=== PATIENT | male | born 1960 | race Caucasian/White ===

== ENCOUNTER 2017-05-24 23:55 | Inpatient (IN) | payer OTHER ==
[~2017-05-24] VITALS: Ht 177.8 cm; Wt 60.0 kg
[2017-05-25] VITALS (11 sets, daily range): BP systolic 119–138; BP diastolic 79–82; PULSE 84–113; RESP 16–18; TEMP 98.9; Ht 177.8 cm; Wt 60.0 kg
--- NOTE | 2017-05-25 00:08 | ERA ---
ER Documentation Chief Complaint Date/Time DATE: 05/25/17 TIME: 00:07 Chief Complaint Altered level of consciousness HPI The patient is a 57-year-old male, presenting to the ER because of altered level consciousness for the last 2 days, gradually getting worse today. He had a venous ultrasound of bilateral lower extremity that showed positive for bilateral DVT. He was asked to go to the hospital. He has been out of the house today and did not have any food. When he came home, the noticed that he has been very confused today, therefore she called 911. When the EMS arrived to the house, O2 saturation was 82% on room air however he responded to supplemental oxygen. He has been sick for a year, undergoing chemotherapy for metastatic esophageal cancer and CT of hope. The also complains of a bleeding lesion on the right upper quadrant today. He is waiting for hospice evaluation. The does not want aggressive treatment, DO NOT RESUSCITATE, DO NOT INTUBATE Past medical history: Metastatic esophageal cancer, history of right pleural effusion, status post right thoracentesis Past surgical history: Port-A-Cath ROS All systems reviewed and are negative except as per history of present illness. Medications Home Meds Reported Medications Amlodipine Besylate* (Amlodipine Besylate*) 10 Mg Tablet, 10 MG PO DAILY, #30 TAB 05/25/17 Allergies Allergies: Coded Allergies: No Known Allergy (Unverified , 05/25/17) Physical Exam Vitals Vital Signs Date Time Temp Pulse Resp B/P Pulse Ox O2 Delivery O2 Flow Rate FiO2 05/25/17 03:46 98.9 87 20 121/87 100 Room Air 05/25/17 00:47 Nasal Cannula 5 05/25/17 00:14 100.2 97 20 156/107 100 Physical Exam Const: No acute distress.Agitated Head: Atraumatic.Multiple lesions on the forehead, nonbleeding Eyes: Normal Conjunctiva. ENT: Normal External Ears, Nose and Mouth. Neck: Full range of motion. No meningismus. Resp: Clear to auscultation bilaterally. Cardio: Regular rate and rhythm. Abd: Soft, non distended, normal bowel sounds, non tender.Right upper quadrant skin lesion that is not actively bleeding Skin: No petechiae or rashes. Back: No midline or flank tenderness. Ext: No cyanosis, or edema. Neur: Unable to perform due to his condition Psych: Unable to perform due to his condition Result Diagram: 05/25/17 0023 05/25/17 0023 Results 24 hrs Laboratory Tests Test 05/25/17 00:23 05/25/17 00:35 05/25/17 00:53 05/25/17 00:54 White Blood Count 9.510^3/ul Red Blood Count 3.4910^6/ul Hemoglobin 10.4g/dl Hematocrit 31.5% Mean Corpuscular Volume 90.3fl Mean Corpuscular Hemoglobin 29.8pg Mean Corpuscular Hemoglobin Concent 33.0g/dl Red Cell Distribution Width 18.6% Platelet Count 62802^3/UL Mean Platelet Volume 9.6fl Neutrophils % 91.6% Lymphocytes % 2.1% Monocytes % 5.7% Eosinophils % 0.0% Basophils % 0.1% Nucleated Red Blood Cells % 0.0/100WBC Neutrophils # 8.710^3/ul Lymphocytes # 0.210^3/ul Monocytes # 0.510^3/ul Eosinophils # 0.010^3/ul Basophils # 0.010^3/ul Nucleated Red Blood Cells # 0.010^3/ul Prothrombin Time 13.5Sec Prothrombin Time Ratio 1.1 INR International Normalized Ratio 1.03 Activated Partial Thromboplast Time 35.3Sec Sodium Level 137mmol/L Potassium Level 4.3mmol/L Chloride Level 97mmol/L Carbon Dioxide Level 30mmol/L Anion Gap 14 Blood Urea Nitrogen 15mg/dl Creatinine 1.15mg/dl Glucose Level 91mg/dl Calcium Level 14.4mg/dl Total Bilirubin 0.9mg/dl Direct Bilirubin 0.00mg/dl Indirect Bilirubin 0.9mg/dl Aspartate Amino Transf (AST/SGOT) 40IU/L Alanine Aminotransferase (ALT/SGPT) 26IU/L Alkaline Phosphatase 162IU/L Troponin I 0.053ng/ml Total Protein 7.2g/dl Albumin 3.7g/dl Globulin 3.50g/dl Albumin/Globulin Ratio 1.05 Urine Color YELLOW Urine Clarity CLOUDY Urine pH 8.0 Urine Specific [place] 1.010 Urine Ketones TRACEmg/dL Urine Nitrite NEGATIVEmg/dL Urine Bilirubin NEGATIVEmg/dL Urine Urobilinogen NEGATIVEmg/dL Urine Leukocyte Esterase NEGATIVELeu/ul Urine Microscopic RBC 3/HPF Urine Microscopic WBC 5/HPF Urine Amorphous Crystals MANY/HPF Urine Hemoglobin NEGATIVEmg/dL Urine Glucose NEGATIVEmg/dL Urine Total Protein NEGATIVEmg/dl Bedside Urine pH (LAB) 8.5 Bedside Urine Protein (LAB) Negative Bedside Urine Glucose (UA) Negative Bedside Urine Ketones (LAB) Trace Bedside Urine Blood Negative Bedside Urine Nitrite (LAB) Negative Bedside Urine Leukocyte Esterase (L Negative Lactic Acid Level 5.1mmol/L Test 05/25/17 02:33 Lactic Acid Level 1.8mmol/L Current Medications Medications (Trade) Dose Ordered Sig/Darlyn Route PRN Reason Start Time Stop Time Status Last Admin Dose Admin Lorazepam 1 mg 1 mg ONCE ONCE IV 05/25/17 01:30 05/25/17 01:31 DC 05/25/17 01:31 Sodium Chloride 1,860 ml @ 1,860 mls/hr BOLUS X1 ONCE IV 05/25/17 02:30 05/25/17 03:29 DC 05/25/17 02:50 Vancomycin HCl 250 ml @ 125 mls/hr ONCE IVPB 05/25/17 02:30 05/25/17 04:29 Piperacillin Sod/ Tazobactam Sod 100 ml @ 200 mls/hr ONCE ONCE IVPB 05/25/17 02:30 05/25/17 02:59 DC 05/25/17 02:50 Zoledronic Acid/ Sodium Chloride (Zometa/NS) 105 ml @ 210 mls/hr ONCE ONCE IVPB 05/25/17 02:30 05/25/17 02:59 DC 05/25/17 02:51 Enoxaparin Sodium (Lovenox) 60 mg ONCE ONCE SC 05/25/17 03:30 05/25/17 03:31 DC Calcitonin [place] (Miacalcin Inj) 240 units Q12 SC 05/25/17 04:00 05/27/17 03:59 UNV Procedures/[place] [address] Radiology Main Line: [phone] DIAGNOSTIC IMAGING REPORT Patient: MARY ANN BRANNON : 1960 Age: 57 Sex: M MR #: [id number] DOS: 05/25/17 0205 Ordering MD: DEBBIE ABERNATHY MD Location: E/R Room/Bed: PROCEDURE: CT BRAIN WITHOUT CONTRAST CLINICAL INDICATION: 57-year-old male with altered level of consciousness. The patient has a history of lung cancer. TECHNIQUE: The study was performed utilizing [employer] VCT 64-slice CT scanner. Direct axial sections were obtained from the foramen magnum to the vertex without the use of intravenous contrast material. The patient moved during the initial scan and therefore was rescanned. Sagittal and coronal reformations were obtained. One or more of the following dose reduction techniques were utilized: automated exposure control, adjustment of the mA and/ or kV according to patient's size or use of iterative reconstruction technique. The images were viewed on a PACS workstation. CTD/vol = 132.6 mGy; Total Exam DLP = 1170.4 mGy-cm. COMPARISON: None. FINDINGS: There is motion artifact identified limiting the evaluation to some extent. There is moderate prominence of the sulci and cisternal spaces consistent with diffuse volume loss. Otherwise, the ventricles have a normal shape and position. There is no evidence for mass effect or midline shift. There are no intracranial areas of abnormal attenuation. There is no evidence for acute intra or extra-axial blood. The bony calvarium is intact. There is an ovoid right frontal scalp soft tissue density measuring approximately 10 x 11 x 13 mm with fluid density. The partially visualized paranasal sinuses and mastoid air cells are without significant abnormal soft tissue. IMPRESSION: 1. Motion artifact limiting the evaluation. 2. Moderate diffuse volume loss. 3. Small ovoid midline frontal scalp soft tissue mass with fluid density. This may represent a sebaceous cyst. .Anjum Montgomery MD, MD Date Time Electronically viewed and signed by .Anjum Montgomery MD, on 05/25/2017 03:10 .M/ CC: DEBBIE ABERNATHY MD [place] [address] Radiology Main Line: [phone] DIAGNOSTIC IMAGING REPORT Patient: MARY ANN BRANNON : 1960 Age: 57 Sex: M [id number] DOS: 05/25/17 0008 Ordering MD: DEBBIE ABERNATHY MD Location: E/R Room/Bed: PROCEDURE: CHEST - 1 VIEW CLINICAL INDICATION: 57-year-old male with sepsis. TECHNIQUE: A single frontal AP portable view of the chest was performed. The images were reviewed on a PACS workstation. COMPARISON: None. FINDINGS: There is a right-sided chest port present with the tip at the cavoatrial junction region. The cardiomediastinal silhouette is within normal limits. There is cubw-sp-qenomzda right pleural effusion. There are diffuse nodular densities identified throughout the lungs bilaterally. There is right mid/lower lung zone atelectasis versus infiltrate. There is no evidence for congestive heart failure. There is no evidence for pneumothorax. The osseous structures are intact. IMPRESSION: 1. Right-sided chest port. 2. Diffuse bilateral ovoid nodular densities scattered throughout the lungs. Prior studies are not available comparison. 3. Ocot-gw-acogouaz right pleural effusion. 4. Right mid/lower lung zone atelectasis versus infiltrate. .Anjum Montgomery MD, MD Date Time Electronically viewed and signed by .Anjum Montgomery MD, MD on 05/25/2017 02:23 .M/ CC: DEBBIE ABERNATHY MD EKG: Read by emergency physician Rate/Rhythm: Sinus tachycardia 105 beats/min QRS, ST, T-waves: No ST elevation, no T inversion, Low voltage Impression: Abnormal EKG MEDICAL MAKING DECISION: The patient is a 57-year-old male, presenting with acute encephalopathy most likely due to metabolic encephalopathy and septic encephalopathy, acute septic shock, acute hypercalcemia, acute bilateral DVT, acute pneumonia, acute right pleural effusion. He was treated with 1 mg Ativan IV for acute agitation, normosaline 30 mL/kg IV, vancomycin IV, Zosyn IV for acute septic shock, Zoledronic acid 4 mg IV for acute hypercalcemia. The differential diagnoses considered include but are not limited to medication non-compliance, alcohol intoxication or withdrawal, drug intoxication or withdrawal, endocrine disorder, trauma, CVA, tumor, metabolic encephalopathy, septic encephalopathy. Admit MDM: Patient's infectious symptoms have not stabilized and the patient is at risk of rapid decompensation. The patient will be admitted for careful hydration, antibiotic therapy, and infectious source control. Severe Sepsis criteria: Infectious source: PNA End organ damage indicated by: Lactate > 2.0 mmol/L Sepsis Management: Time of recognition of severe sepsis/septic shock: 1 am Within 3 hours of recognition: Blood cultures x 2 before broad-spectrum antibiotics: Yes 30 ml/kg NS bolus completed Initial lactate 5.1 Repeat lactate pending Critical Care: Critical care time 35 minutes excluding billable procedure Emergent fluid management while maintaining close respiratory support. Provision of immediate and broad-spectrum antibiotic therapy. Simultaneous assessment for possible sources in order to direct targeted therapy. Consideration for invasive and chemical support to prevent cardiopulmonary collapse. Septic Shock Assessment: Any lactic acid > 4.0 yes Persistent hypotension (SBP < 90 or 40 mmHg drop, MAP < 65) despite 30 mL/kg IV fluid bolusno Volume Re-assessment for Septic Shock (post 30 ml/kg bolus): Temp98.9, BP121/87, HR87, RR20, Pox100% Heart regular rate & rhythm Lungs no crackles Skin Warm & dry & pink Cap Refill less than 2 seconds Peripheral pulses radially present Persistent Hypotension Treatment: Comfort care yes Central line na Vasopressor started na I considered further perfusion assessment with CVP measurement, SCVO2, bedside ultrasound volume assessment, passive leg raise, trial of further fluid bolus. And proceeded withivf Departure Diagnosis: Primary Impression: Encephalopathy Additional Impressions: Septic shock DVT (deep venous thrombosis) Hypercalcemia Pneumonia Pleural effusion, right Anemia Condition: Serious Comments I discussed the findings with the patient. I discussed the patient with the on- call hospitalist Dr. Narvaez at 3:25 AM who was made aware of the lab, the treatment, the patient condition. The patient is admitted to telemetry The patient's blood pressure was elevated (>120/80) but appears stable without evidence of hypertension emergency or urgency. The patient was counseled about the risks of hypertension and urged to pursue outpatient monitoring and therapy within a week with their primary care physician. DEBBIE ABERNATHY MD May 25, 2017 00:08
[2017-05-25 00:45] LABS: URINE BLOOD (Dip) POC Negative (NEGATIVE)
[2017-05-25 01:05] LABS: ABNORMAL IP MESSAGE 1; BASOPHILS % 0.1 % (0.0-2.0); HEMATOCRIT 31.5 % (42.0-52.0); HEMOGLOBIN 10.4 g/dl (14.0-18.0); LYMPHOCYTES # 0.2 10^3/ul (0.8-2.9); LYMPHOCYTES % 2.1 % (15.0-51.0); MEAN CORPUSCULAR HEMOGLOBIN 29.8 pg (29.0-33.0); MEAN CORPUSCULAR VOLUME 90.3 fl (82.0-101.0); MEAN PLATELET VOLUME 9.6 fl (7.4-10.4); MONOCYTE # 0.5 10^3/ul (0.3-0.9); MONOCYTES % 5.7 % (0.0-11.0); NEUTROPHIL # 8.7 10^3/ul (1.6-7.5); NEUTROPHILS % 91.6 % (39.0-77.0); PLATELET COUNT 428 10^3/UL (140-415); POSITIVE DIFF @See below; RED BLOOD COUNT 3.49 10^6/ul (4.70-6.10); RED CELL DISTRIBUTION WIDTH 18.6 % (11.5-14.5); WHITE BLOOD COUNT 9.5 10^3/ul (4.8-10.8)
[2017-05-25 01:19] LABS: INR 1.03; PROTIME 13.5 Sec (12.2-14.2); PT RATIO 1.1
[2017-05-25 01:20] LABS: PARTIAL THROMBOPLASTIN TIME 35.3 Sec (25.0-35.0)
[2017-05-25] MEDS ORDERED: LORAZEPAM 2 MG INJ IV ONE (01:30)
[2017-05-25 01:32] LABS: ALBUMIN 3.7 g/dl (3.3-4.9); ALBUMIN/GLOBULIN RATIO 1.05; BILIRUBIN,INDIRECT 0.9 mg/dl (0-1.1); BILIRUBIN,TOTAL 0.9 mg/dl (0.2-1.3); CREATININE 1.15 mg/dl (0.61-1.24); POTASSIUM 4.3 mmol/L (3.5-5.1); TOTAL PROTEIN 7.2 g/dl (6.1-8.1)
[2017-05-25 01:41] LABS: ADD UMIC YES; UR AMORPHOUS CRYSTAL MANY /HPF (NONE SEEN); UR ASCORBIC ACID NEGATIVE (NEGATIVE); UR BILIRUBIN (Dip) NEGATIVE (NEGATIVE); UR BLOOD (Dip) NEGATIVE (NEGATIVE); UR CLARITY CLOUDY (CLEAR); UR COLOR YELLOW (YELLOW); UR GLUCOSE (Dip) NEGATIVE (NEGATIVE); UR KETONES (Dip) TRACE mg/dL (NEGATIVE); UR LEUKOCYTE ESTERASE (Dip) NEGATIVE Leu/ul (NEGATIVE); UR NITRITE (Dip) NEGATIVE (NEGATIVE); UR RBC 3 /HPF (0-5); UR TOTAL PROTEIN (Dip) NEGATIVE (NEGATIVE); UR UROBILINOGEN (Dip) NEGATIVE (NEGATIVE)
[2017-05-25 01:45] LABS: TROPONIN-I 0.053 ng/ml (0.00-0.12)
[2017-05-25 02:03] LABS: CALCIUM 14.4 mg/dl (8.4-10.2)
--- NOTE | 2017-05-25 02:24 | RADRPT ---
PROCEDURE: CHEST - 1 VIEW CLINICAL INDICATION: 57-year-old male with sepsis. TECHNIQUE: A single frontal AP portable view of the chest was performed. The images were reviewed on a PACS workstation. COMPARISON: None. FINDINGS: There is a right-sided chest port present with the tip at the cavoatrial junction region. The cardio mediastinal silhouette is within normal limits. There is bnwl-sn-pjeccclb right pleural effusion. Th ere are diffuse nodular densities identified throughout the lungs bilaterally. There is right mid/lo wer lung zone atelectasis versus infiltrate. There is no evidence for congestive heart failure. The re is no evidence for pneumothorax. The osseous structures are intact. IMPRESSION: 1. Right-sided chest port. 2. Diffuse bilateral ovoid nodular densities scattered throughout the lungs. Prior studies are not available comparison. 3. Qizf-vu-pbgapegb right pleural effusion. 4. Right mid/lower lung zone atelectasis versus infiltrate. .Anjum Montgomery MD, MD Date Time Electronically viewed and signed by .Anjum Montgomery MD, on 05/25/2017 02:23 .M/
[2017-05-25] MEDS ORDERED: AMLO-147 PO (02:26)
[2017-05-25] MEDS ORDERED: SOD CHLORIDE 0.9% 1,860 ML IV ONE (02:30)
[2017-05-25] MEDS ORDERED: ZOLEDRONIC ACID 4 MG in SOD CHLORIDE 0.9% 100 ML IVPB ONE (02:30)
[2017-05-25] MEDS ORDERED: VANCOMYCIN 1 GM (PMX) 250 ML IVPB SCH (02:30)
[2017-05-25] MEDS ORDERED: PIPER-TAZO 3.375 GM IV (PMX) 100 ML IVPB ONE (02:30)
--- NOTE | 2017-05-25 03:10 | RADRPT ---
PROCEDURE: CT BRAIN WITHOUT CONTRAST CLINICAL INDICATION: 57-year-old male with altered level of consciousness. The patient has a histo ry of lung cancer. TECHNIQUE: The study was performed utilizing [employer] VCT 64-slice CT scanner. Direct axial sections were obtained from the foramen magnum to the vertex without the use of intravenous contrast material. The patient moved during the initial scan and therefore was rescanned. Sagittal and partha nal reformations were obtained. One or more of the following dose reduction techniques were utilized : automated exposure control, adjustment of the mA and/or kV according to patient's size or use of i terative reconstruction technique. The images were viewed on a PACS workstation. CTD/vol = 132.6 m Gy; Total Exam DLP = 1170.4 mGy-cm. COMPARISON: None. FINDINGS: There is motion artifact identified limiting the evaluation to some extent. There is moderate promin ence of the sulci and cisternal spaces consistent with diffuse volume loss. Otherwise, the ventricl es have a normal shape and position. There is no evidence for mass effect or midline shift. There a re no intracranial areas of abnormal attenuation. There is no evidence for acute intra or extra-axi al blood. The bony calvarium is intact. There is an ovoid right frontal scalp soft tissue density me asuring approximately 10 x 11 x 13 mm with fluid density. The partially visualized paranasal sinuses and mastoid air cells are without significant abnormal soft tissue. IMPRESSION: 1. Motion artifact limiting the evaluation. 2. Moderate diffuse volume loss. 3. Small ovoid midline frontal scalp soft tissue mass with fluid density. This may represent a seba ceous cyst. .Anjum Montgomery MD, Date Time Electronically viewed and signed by .Anjum Montgomery MD, on 05/25/2017 03:10 .M/
[2017-05-25] MEDS ORDERED: ENOXAPARIN 40 MG/0.4 ML SYG SC ONE (03:30)
[2017-05-25] MEDS: SOD CHLORIDE 0.9% 1,000 ML IV SCH ×4 (03:47→22:16)
[2017-05-25] MEDS ORDERED: ACETAMINOPHEN 325 MG TAB PO PRN (04:00)
[2017-05-25] MEDS ORDERED: NACL 0.9% 3 ML SYG IV SCH (04:00)
[2017-05-25] MEDS ORDERED: ONDANSETRON 4 MG INJ IV PRN (04:00)
[2017-05-25] MEDS: CALCITONIN SALMON 400 UNITS INJ SC SCH ×3 (04:00→22:18)
--- NOTE | 2017-05-25 04:21 | RADRPT ---
PROCEDURE: US bilateral lower extremity venous Doppler CLINICAL INDICATION: Bilateral swelling TECHNIQUE: Multiple sonographic images of the bilateral lower extremity deep venous system was obt ained utilizing grayscale, color-flow, compressive sonography and Doppler imaging with augmentation. COMPARISON: There are no similar studies submitted for comparison. FINDINGS: There is normal compressibility and flow within the left common femoral, superficial femoral, poplit eal, and calf veins. There is normal compressibility and flow within the right common femoral, superficial femoral, popli teal, and calf veins. IMPRESSION: No evidence of DVT within the lower extremities. RPTAT: HIKT .Jesus Bernal MD, MD Date Time Electronically viewed and signed by .Jesus Bernal MD, MD on 05/25/2017 04:20 .T/
[2017-05-25] MEDS ORDERED: PANTOPRAZOLE 40 MG INJ IV SCH (06:00)
[2017-05-25] MEDS ORDERED: PIPER-TAZO 3.375 GM IV (PMX) 100 ML IVPB SCH (07:00)
[2017-05-25] MEDS ORDERED: HALOPERIDOL 5 MG INJ IM ONE (07:00)
[2017-05-25] MEDS ORDERED: VANCOMYCIN IV PER PHARMACY XX SCH (07:00)
--- NOTE | 2017-05-25 07:04 | HP ---
Date/Time of Note Date/Time of Note DATE: 05/25/17 TIME: 06:35 Assessment/Plan VTE Prophylaxis VTE Prophylaxis Intervention: LMWH Assessment/Plan Chief Complaint/Hosp Course This is a 57-year-old male being admitted to the telemetry floor for: #1 septic shock: Patient initially presented with a lactic acid level of 5.1. He also had a temperature of 100.2. Chest x-ray: Shows signs of possible infiltrates. He also has been coughing lately. We will treat the patient right now for suspected pneumonia with vancomycin and Zosyn. He was apparently D satting when ambulance arrived 82% however now at the current time he is 100% on room air. There also appears to be gurgling at the upper airways when he coughs, will need to put the patient on aspiration precautions. Oral suctioning of the secretions. serial lactate levels. #2 right-sided pleural effusion: Patient had a previous thoracentesis. Chest x- ray findings suggest a mild to moderate right-sided pleural effusion based on the read. Will consult IR for right-sided thoracentesis to see if we can get any amount of fluid out for his comfort, though based on x-ray I do feel like he may not be able to get much. #3 hypercalcemia: Secondary likely to underlying metastatic cancer. Will provide him with IV fluid hydration. He was given alendronate in the ED. Will also put him on calcitonin 4 U/kg injections twice daily for 48 hours. Will order PTH level. Monitor calcium levels #4 altered mental status: Likely multifactorial secondary to underlying septic shock, pneumonia, hypercalcemia. Will await the above and monitor his status. Will order speech and swallow eval. Will keep patient n.p.o. for now., IV fluid hydration #5 anemia of chronic disease: Likely secondary to underlying cancer. Continue to monitor. #6 acute kidney injury: Likely prerenal etiology at the current time with IV hydration #7 metastatic esophageal squamous cell carcinoma: Patient is being followed by [facility]. Will consult palliative care at the 's request. history of smoking and etoh use. #8 questionable DVT: Patient apparently had a outpatient lower extremity Doppler that was positive for DVTs however repeat lower extremity bilateral Dopplers in the hospital today did not show any signs of DVT. at the current time will put on scds until he has a thoracentesis, and then can put him on heparin. #9 HTN: hold amlodipine for now secondary to #1 #10 DVT GI prophylaxis: scds for now, Protonix Further treatment strategy will be implemented as per the clinical course Problems: HPI/ROS Admit Date/Time Admit Date/Time May 25, 2017 at 03:27 Hx of Present Illness Chief complaint: Altered level of consciousness The patient is a 57-year-old male, presenting to the ER because of altered level consciousness for the last 2 days, gradually getting worse today. He had a venous ultrasound of bilateral lower extremity that showed positive for bilateral DVT. He was asked to go to the hospital. He has been out of the house today and did not have any food. When he came home, the noticed that he has been very confused today, therefore she called 911. When the EMS arrived to the house, O2 saturation was 82% on room air however he responded to supplemental oxygen. He has been sick for a year, undergoing chemotherapy for metastatic esophageal cancer and [facility] ([facility] The does not want aggressive treatment, DO NOT RESUSCITATE, DO NOT INTUBATE. is planning for hospice evaluation on Saturday or Saturday. She is opening to see a palliative care doctor here as well. Allergies: NKDA Medications: See Oct Const: As per HPI Eyes : No pain discharge or redness or change in visual acuity ENT: Oral secretions/gurgling Respiratory: No shortness of breath, cough, sputum, wheezing, or pleuritic pain Cardiovascular: No chest pain, palpitation, PND, or edema GI : no change in appetite, abdominal pain, nausea, vomiting, diarrhea, constipation, or change in the color his stool Genitourinary: No dysuria, hematuria, flank pain , discharge or CVA tenderness Musculoskeletal: No joint pain, back pain, neck pain, restricted range of motion in neck or joints Skin: Skin lesions of the scalp and right upper quadrant Neuro: As per HPI Endocrine: No polyuria, polydipsia, temperature intolerance Psych: As per HPI PMH/Family/Social Past Medical History Metastatic squamous cell esophageal cancer, history of right pleural effusion, status post right thoracentesis, hypertension Past Surgical History Right chest Port-A-Cath Family History Significant Family History: no pertinent family hx Social History Alcohol Use: sober (Former EtOH drinker) Smoking Status: Former smoker Drug Use: none Exam/Review of Systems Vital Signs Vitals Vital Signs Date Time Temp Pulse Resp B/P Pulse Ox O2 Delivery O2 Flow Rate FiO2 05/25/17 05:29 96 05/25/17 04:32 20 129/91 100 Room Air 05/25/17 03:46 98.9 05/25/17 00:47 5 Exam Exam General: Patient is somnolent, but arousable. He is able to answer questions appropriately though he is lethargic HEENT: Atraumatic, normocephalic. The pupils are equal, round and reactive. Extraocular motor are intact Neck: Supple with full range of motion. Upper airway gurgling sounds Chest: Nontender Lungs: Coarse breath sounds of the bilateral lung melendez greater on the right and the left, Heart: Normal S1-S2, Regular rhythm and rate. Abdomen: Soft , nontender, nondistended , bowel sounds are present. No guarding no rebound tenderness , No masses or organomegaly. No costovertebral temporal angle mass Extremities: Normal to inspection, no edema no cyanosis Neurologic: Somnolent but arousable. He is able to answer some questions appropriately, though he is a bit confused. Unable to assess further neurologic exam secondary to somnolence and lethargy. Additional Comments PROCEDURE: US bilateral lower extremity venous Doppler CLINICAL INDICATION: Bilateral swelling TECHNIQUE: Multiple sonographic images of the bilateral lower extremity deep venous system was obtained utilizing grayscale, color-flow, compressive sonography and Doppler imaging with augmentation. COMPARISON: There are no similar studies submitted for comparison. FINDINGS: There is normal compressibility and flow within the left common femoral, superficial femoral, popliteal, and calf veins. There is normal compressibility and flow within the right common femoral, superficial femoral, popliteal, and calf veins. IMPRESSION: No evidence of DVT within the lower extremities. RPTAT: HIKT .Jesus Bernal MD, Date Time Electronically viewed and signed by .Jesus Bernal MD, on 05/25/2017 04:20 .T/ CC: DEBBIE ABERNATHY MD PROCEDURE: CT BRAIN WITHOUT CONTRAST CLINICAL INDICATION: 57-year-old male with altered level of consciousness. The patient has a history of lung cancer. TECHNIQUE: The study was performed utilizing [employer] VCT 64-slice CT scanner. Direct axial sections were obtained from the foramen magnum to the vertex without the use of intravenous contrast material. The patient moved during the initial scan and therefore was rescanned. Sagittal and coronal reformations were obtained. One or more of the following dose reduction techniques were utilized: automated exposure control, adjustment of the mA and/ or kV according to patient's size or use of iterative reconstruction technique. The images were viewed on a PACS workstation. CTD/vol = 132.6 mGy; Total Exam DLP = 1170.4 mGy-cm. COMPARISON: None. FINDINGS: There is motion artifact identified limiting the evaluation to some extent. There is moderate prominence of the sulci and cisternal spaces consistent with diffuse volume loss. Otherwise, the ventricles have a normal shape and position. There is no evidence for mass effect or midline shift. There are no intracranial areas of abnormal attenuation. There is no evidence for acute intra or extra-axial blood. The bony calvarium is intact. There is an ovoid right frontal scalp soft tissue density measuring approximately 10 x 11 x 13 mm with fluid density. The partially visualized paranasal sinuses and mastoid air cells are without significant abnormal soft tissue. IMPRESSION: 1. Motion artifact limiting the evaluation. 2. Moderate diffuse volume loss. 3. Small ovoid midline frontal scalp soft tissue mass with fluid density. This may represent a sebaceous cyst. .Anjum Montgomery MD, Date Time Electronically viewed and signed by .Anjum Montgomery MD, MD on 05/25/2017 03:10 .M/ CC: DEBBIE ABERNATHY MD PROCEDURE: CHEST - 1 VIEW CLINICAL INDICATION: 57-year-old male with sepsis. TECHNIQUE: A single frontal AP portable view of the chest was performed. The images were reviewed on a PACS workstation. COMPARISON: None. FINDINGS: There is a right-sided chest port present with the tip at the cavoatrial junction region. The cardiomediastinal silhouette is within normal limits. There is [id number] right pleural effusion. There are diffuse nodular densities identified throughout the lungs bilaterally. There is right mid/lower lung zone atelectasis versus infiltrate. There is no evidence for congestive heart failure. There is no evidence for pneumothorax. The osseous structures are intact. IMPRESSION: 1. Right-sided chest port. 2. Diffuse bilateral ovoid nodular densities scattered throughout the lungs. Prior studies are not available comparison. 3. Khkw-im-oxvounvl right pleural effusion. 4. Right mid/lower lung zone atelectasis versus infiltrate. .Anjum Montgomery MD, MD Date Time Electronically viewed and signed by .Anjum Montgomery MD, MD on 05/25/2017 02:23 .M/ CC: DEBBIE ABERNATHY MD Labs Result Diagram: 05/25/17 0023 05/25/17 0023 Medications Medications Current Medications Calcitonin [place] 240 units 240 units Q12 SC Last administered on 05/25/17 04: 00; Admin Dose 240 UNITS; Start 05/25/17 at 04:00; Stop 05/27/17 at 03:59 Sodium Chloride (NS) 1,000 ml @ 100 mls/hr Q10H IV ; Start 05/25/17 at 03:47 Ondansetron HCl (Zofran Inj) 4 mg Q6H PRN IV NAUSEA AND/OR VOMITING; Start 05/25/17 at 04:00 Acetaminophen (Tylenol Tab) 650 mg Q6H PRN PO PAIN LEVEL 1-3 OR FEVER; Start 05/25/17 at 04:00 Pantoprazole (Protonix Iv) 40 mg DAILY@06 IV Last administered on 05/25/17 05: 56; Admin Dose 40 MG; Start 05/25/17 at 06:00 Haloperidol (Haldol) 2 mg ONCE ONCE IM ; Start 05/25/17 at 07:00; Stop at 07:01 RAZ NICHOLS May 25, 2017 06:45
[2017-05-25 07:39] LABS: ABNORMAL IP MESSAGE 1; BASOPHILS % 0.1 % (0.0-2.0); HEMATOCRIT 29.9 % (42.0-52.0); HEMOGLOBIN 9.8 g/dl (14.0-18.0); LYMPHOCYTES # 0.1 10^3/ul (0.8-2.9); LYMPHOCYTES % 1.4 % (15.0-51.0); MEAN CORPUSCULAR HEMOGLOBIN 29.3 pg (29.0-33.0); MEAN CORPUSCULAR HGB CONC 32.8 g/dl (32.0-37.0); MEAN CORPUSCULAR VOLUME 89.5 fl (82.0-101.0); MEAN PLATELET VOLUME 9.6 fl (7.4-10.4); MONOCYTE # 0.7 10^3/ul (0.3-0.9); MONOCYTES % 7.7 % (0.0-11.0); NEUTROPHIL # 8.6 10^3/ul (1.6-7.5); NEUTROPHILS % 90.2 % (39.0-77.0); PLATELET COUNT 393 10^3/UL (140-415); POSITIVE DIFF @See below; RED BLOOD COUNT 3.34 10^6/ul (4.70-6.10); RED CELL DISTRIBUTION WIDTH 18.9 % (11.5-14.5); WHITE BLOOD COUNT 9.6 10^3/ul (4.8-10.8)
[2017-05-25 07:58] LABS: ALBUMIN 3.3 g/dl (3.3-4.9); ALBUMIN/GLOBULIN RATIO 1.06; BILIRUBIN,INDIRECT 0.7 mg/dl (0-1.1); BILIRUBIN,TOTAL 0.7 mg/dl (0.2-1.3); CALCIUM 11.9 mg/dl (8.4-10.2); CREATININE 1.03 mg/dl (0.61-1.24); POTASSIUM 3.4 mmol/L (3.5-5.1); TOTAL PROTEIN 6.4 g/dl (6.1-8.1)
[2017-05-25] MEDS ORDERED: POTASSIUM CHLORIDE (SR) 20 MEQ TAB PO STA (08:17)
[2017-05-25] MEDS ORDERED: ENOXAPARIN 40 MG/0.4 ML SYG SC SCH (09:00)
[2017-05-25] MEDS: AMLODIPINE 10 MG TAB PO SCH (09:00)
[2017-05-25] MEDS ORDERED: LEVOFLOXACIN 750 MG TABLET PO ONE (10:00)
--- NOTE | 2017-05-25 10:17 | PN ---
Date/Time of Note Date/Time of Note DATE: 05/25/17 TIME: 10:10 Assessment/Plan VTE Prophylaxis VTE Prophylaxis Intervention: SCD's Assessment/Plan Assessment/Plan 57 yo M with stage 4 esophageal ca here for AMS, likely metabolic encephalopathy from hypercalcemia of malignancy also with R sided pleural effusion and possible CAP PLAN #hypercalcemia: cont IVFs-->incr rate to 250 sp calcitonin x 1, ZA x 1, Ca already improving consider HD if ca >18 #R sided pleural effusion, possible CAP -thora ordered -empiric levoflox #end stage cancer PRN pain and agitation meds wound care cs for subQ mets DVT prophx. Imaging here without evidence of DVT Subjective 24 Hr Interval Summary Free Text/Dictation Talked more with . Pt diagnosed with cancer 8.16. Was already stage 4 at time of diagnosis. Has been following at [facility], found to have disease progression despite therapy. Now with subQ mets. Pt's AMS started just 1-2 days ago. Last thora was 2 mos ago, cytology at that time negative Exam/Review of Systems Vital Signs Vitals Vital Signs Date Time Temp Pulse Resp B/P Pulse Ox O2 Delivery O2 Flow Rate FiO2 05/25/17 08:00 84 05/25/17 07:43 97.7 18 138/82 05/25/17 04:32 100 Room Air 05/25/17 00:47 5 Exam laying in bed, agitated, trying to get up at times no mrg superior lung melendez clear abd soft +bl pedal edema LE dopplers with no DVT Results Result Diagram: 05/25/17 0650 05/25/17 0650 Results 24 hrs Laboratory Tests Test 05/25/17 00:23 05/25/17 00:35 05/25/17 00:53 05/25/17 00:54 White Blood Count 9.5 Red Blood Count 3.49 L Hemoglobin 10.4 L Hematocrit 31.5 L Mean Corpuscular Volume 90.3 Mean Corpuscular Hemoglobin 29.8 Mean Corpuscular Hemoglobin Concent 33.0 Red Cell Distribution Width 18.6 H Platelet Count 428 H Mean Platelet Volume 9.6 Neutrophils % 91.6 H Lymphocytes % 2.1 L Monocytes % 5.7 Eosinophils % 0.0 Basophils % 0.1 Nucleated Red Blood Cells % 0.0 Neutrophils # 8.7 H Lymphocytes # 0.2 L Monocytes # 0.5 Eosinophils # 0.0 Basophils # 0.0 Nucleated Red Blood Cells # 0.0 Prothrombin Time 13.5 Prothrombin Time Ratio 1.1 INR International Normalized Ratio 1.03 Activated Partial Thromboplast Time 35.3 H Sodium Level 137 Potassium Level 4.3 Chloride Level 97 Carbon Dioxide Level 30 Anion Gap 14 Blood Urea Nitrogen 15 Creatinine 1.15 Glucose Level 91 Calcium Level 14.4 *H Total Bilirubin 0.9 Direct Bilirubin 0.00 Indirect Bilirubin 0.9 Aspartate Amino Transf (AST/SGOT) 40 Alanine Aminotransferase (ALT/SGPT) 26 Alkaline Phosphatase 162 H Troponin I 0.053 Total Protein 7.2 Albumin 3.7 Globulin 3.50 H Albumin/Globulin Ratio 1.05 Urine Color YELLOW Urine Clarity CLOUDY A Urine pH 8.0 Urine Specific [place] 1.010 Urine Ketones TRACE A Urine Nitrite NEGATIVE Urine Bilirubin NEGATIVE Urine Urobilinogen NEGATIVE Urine Leukocyte Esterase NEGATIVE Urine Microscopic RBC 3 Urine Microscopic WBC 5 Urine Amorphous Crystals MANY A Urine Hemoglobin NEGATIVE Urine Glucose NEGATIVE Urine Total Protein NEGATIVE Bedside Urine pH (LAB) 8.5 Bedside Urine Protein (LAB) Negative Bedside Urine Glucose (UA) Negative Bedside Urine Ketones (LAB) Trace H Bedside Urine Blood Negative Bedside Urine Nitrite (LAB) Negative Bedside Urine Leukocyte Esterase (L Negative Lactic Acid Level 5.1 *H Test 05/25/17 02:33 05/25/17 06:50 Lactic Acid Level 1.8 2.0 White Blood Count 9.6 Red Blood Count 3.34 L Hemoglobin 9.8 L Hematocrit 29.9 L Mean Corpuscular Volume 89.5 Mean Corpuscular Hemoglobin 29.3 Mean Corpuscular Hemoglobin Concent 32.8 Red Cell Distribution Width 18.9 H Platelet Count 393 Mean Platelet Volume 9.6 Neutrophils % 90.2 H Lymphocytes % 1.4 L Monocytes % 7.7 Eosinophils % 0.0 Basophils % 0.1 Nucleated Red Blood Cells % 0.0 Neutrophils # 8.6 H Lymphocytes # 0.1 L Monocytes # 0.7 Eosinophils # 0.0 Basophils # 0.0 Nucleated Red Blood Cells # 0.0 Sodium Level 138 Potassium Level 3.4 L Chloride Level 100 Carbon Dioxide Level 31 Anion Gap 10 Blood Urea Nitrogen 12 Creatinine 1.03 Glucose Level 97 Calcium Level 11.9 #H Magnesium Level 2.1 Total Bilirubin 0.7 Direct Bilirubin 0.00 Indirect Bilirubin 0.7 Aspartate Amino Transf (AST/SGOT) 41 Alanine Aminotransferase (ALT/SGPT) 30 Alkaline Phosphatase 139 H Total Protein 6.4 Albumin 3.3 Globulin 3.10 Albumin/Globulin Ratio 1.06 Thyroid Stimulating Hormone (TSH) 42.600 H Medications Medications Current Medications Calcitonin [place] 240 units 240 units Q12 SC Last administered on 05/25/17 04: 00; Admin Dose 240 UNITS; Start 05/25/17 at 04:00; Stop 05/27/17 at 03:59 Sodium Chloride (NS) 1,000 ml @ 100 mls/hr Q10H IV Last administered on 09:35; Admin Dose 100 MLS/HR; Start 05/25/17 at 03:47 Ondansetron HCl (Zofran Inj) 4 mg Q6H PRN IV NAUSEA AND/OR VOMITING; Start 05/25/17 at 04:00 Acetaminophen (Tylenol Tab) 650 mg Q6H PRN PO PAIN LEVEL 1-3 OR FEVER; Start 05/25/17 at 04:00 Amlodipine Besylate (Norvasc) 10 mg DAILY PO ; Start 05/25/17 at 09:00 Levofloxacin (Levaquin) 750 mg DAILY@06 PO ; Start 05/26/17 at 06:00; Status UNV Levofloxacin (Levaquin) 750 mg ONCE ONCE PO ; Start 05/25/17 at 10:00; Stop at 10:01; Status UNV ROBERTO WATKINS MD May 25, 2017 10:17
[2017-05-25] MEDS ORDERED: LORAZEPAM 2 MG INJ IV PRN (10:30)
[2017-05-25] MEDS ORDERED: LEVOFLOXACIN 500MG/D5W (PMX) 100 ML IVPB ONE (11:00)
[2017-05-25] MEDS ORDERED: POTASSIUM CHLORIDE 250 ML IVPB ONE (11:00)
[2017-05-25] MEDS ORDERED: VANCOMYCIN 750 MG in SOD CHLORIDE 0.9% 150 ML IVPB SCH (13:00)
[2017-05-25] MEDS ORDERED: PENDING SANTYL ORDER FOR WOUND CARE XX PRN (15:30)
[2017-05-25] MEDS ORDERED: LIDOCAINE 1% (MPF) 5 ML VIAL ONE (18:26)
--- NOTE | 2017-05-25 18:39 | RADRPT ---
PROCEDURE: US guided right thoracentesis. CLINICAL INDICATION: Shortness of breath. Right pleural effusion. TECHNIQUE: Prior to the procedure, informed consent was obtained. The risks, benefits, and alternatives were e xplained to the patient or the patient's family, including but not limited to bleeding, infection, p ain, visceral or vascular damage, shock, pneumothorax, chest tube placement, air embolism, and . The patient or the patient's family understood the risks and the alternatives and wished to proce ed with the study. Informed written consent was obtained. A procedural pause was performed. The patient's name, date of , and procedure to be performed were verified. Ultrasound of the right hemithorax was performed in the axial and sagittal planes. A right pleural e ffusion is noted. Utilizing ultrasound guidance, optimal location for entry to the pleural cavity wa s ascertained. The overlying skin was prepped and draped in the usual sterile fashion. Approximate ly 10 ml of 1% Xylocaine was injected locally for pain control. Using ultrasound guidance, a 5-Fren ch Yueh catheter was introduced into the right pleural space without difficulty. Fluid was aspirated . COMPARISON: None. FINDINGS: Initial ultrasound demonstrates fluid in the right pleural space. Approximately 2.0liters of serous fluid was aspirated and sent to the laboratory. IMPRESSION: 1. Satisfactory ultrasound-guided right thoracentesis. RPTAT: QQ .Russell Calderon MD, Date Time Electronically viewed and signed by .Russell Calderon MD, on 05/25/2017 18:39 .R/
--- NOTE | 2017-05-25 19:08 | RADRPT ---
PROCEDURE: XR Chest. CLINICAL INDICATION: Lung metastases from esophageal cancer. Post right thoracentesis. TECHNIQUE: Single frontal view. COMPARISON: 05/25/2017. 0042 hours. FINDINGS: There is a tunneled implanted port right internal jugular vein catheter with the tip in the right at rium superiorly. Multiple bilateral pulmonary nodules are present consistent with metastatic disease . The heart size is normal. There is no right pleural effusion following right thoracentesis. There may be a small left pleural effusion. There is a right pneumothorax measuring approximately 10%. There is no left pneumothorax. IMPRESSION: 1. Approximately a 10% right pneumothorax following right thoracentesis. Follow-up chest x-ray in 1 -2 hours is advised. 2. No other change from the prior study done earlier the same day. Call report: A call report of the findings was made to Dr. Nelson on 05/25/2017 at 1840 hours. RPTAT: QQ .Russell Calderon MD, MD Date Time Electronically viewed and signed by .Russell Calderon MD, on 05/25/2017 19:07 .R/
[2017-05-25 19:25] LABS: FLD MN% 93.6 %; FLD PMN% 6.4 %; FLD RBC 0 /uL; FLD WBC 110 /cmm
[2017-05-25 19:29] LABS: FLD CLARITY HAZY; FLD COLOR YELLOW; FLD TYPE THORACENTESIS
[2017-05-25 19:34] LABS: FLUID LD 1556 U/L; FLUID TOTAL PROTEIN 4.4 g/dl; FLUID TYPE THORACENTESIS FLUID
[2017-05-25 19:35] LABS: FLUID GLUCOSE 88 mg/dl; FLUID TYPE THORACENTESIS FLUID
[2017-05-26] VITALS (12 sets, daily range): BP systolic 110–133; BP diastolic 62–96; PULSE 94–103; RESP 16–20
--- NOTE | 2017-05-26 00:58 | RADRPT ---
PROCEDURE: Portable chest x-ray. CLINICAL INDICATION: 57 years of age, male. Right pneumothorax post thoracentesis. Follow-up.. TECHNIQUE: Portable AP view of the chest. COMPARISON: Chest x-ray from earlier the same day at 06:27 p.m. FINDINGS: Right internal jugular indwelling catheter with the tip in the right atrium is in unchanged position . Cardiomediastinal contours are stable. Multiple bilateral pulmonary metastases are unchanged. Right pneumothorax has decreased in size since prior exam. There is an 1.2 cm right apical pleural s eparation. Loculated air at the lateral right lung base is no longer seen. Tracer right pleural effusion and small left pleural effusion are stable. No acute bony abnormality. IMPRESSION: Small right pneumothorax has decreased in size since prior exam with small right apical pneumothorax remaining. Chest is otherwise unchanged. RPTAT: HCTS Physician Pablo Date Time Electronically viewed and signed by Physician Pablo on 05/26/2017 00:58 /
[2017-05-26] MEDS: SOD CHLORIDE 0.9% 1,000 ML IV SCH ×4 (02:21→13:47)
[2017-05-26] MEDS ORDERED: LEVOFLOXACIN 750 MG TABLET PO SCH (06:00)
[2017-05-26] MEDS ORDERED: LEVOTHYROXINE 112 MCG TAB PO SCH (06:00)
[2017-05-26 06:18] LABS: ABNORMAL IP MESSAGE 1; BASOPHILS % 0.1 % (0.0-2.0); HEMATOCRIT 33.1 % (42.0-52.0); HEMOGLOBIN 10.9 g/dl (14.0-18.0); LYMPHOCYTES # 0.2 10^3/ul (0.8-2.9); LYMPHOCYTES % 1.4 % (15.0-51.0); MEAN CORPUSCULAR HEMOGLOBIN 28.8 pg (29.0-33.0); MEAN CORPUSCULAR HGB CONC 32.9 g/dl (32.0-37.0); MEAN CORPUSCULAR VOLUME 87.6 fl (82.0-101.0); MEAN PLATELET VOLUME 9.5 fl (7.4-10.4); MONOCYTE # 0.7 10^3/ul (0.3-0.9); MONOCYTES % 6.2 % (0.0-11.0); NEUTROPHIL # 9.6 10^3/ul (1.6-7.5); NEUTROPHILS % 91.7 % (39.0-77.0); PLATELET COUNT 411 10^3/UL (140-415); POSITIVE DIFF @See below; RED BLOOD COUNT 3.78 10^6/ul (4.70-6.10); RED CELL DISTRIBUTION WIDTH 19.7 % (11.5-14.5); WHITE BLOOD COUNT 10.5 10^3/ul (4.8-10.8)
[2017-05-26] MEDS: LEVOTHYROXINE 100 MCG VIAL IV SCH (06:19)
[2017-05-26 06:30] LABS: CALCIUM 10.2 mg/dl (8.4-10.2); CREATININE 0.8 mg/dl (0.61-1.24)
[2017-05-26 06:42] LABS: POTASSIUM 2.9 mmol/L (3.5-5.1)
[2017-05-26] MEDS: POTASSIUM CHLORIDE 250 ML IVPB SCH ×2 (08:06→15:27)
[2017-05-26] MEDS: AMLODIPINE 10 MG TAB PO SCH (09:00)
[2017-05-26] MEDS: CALCITONIN SALMON 400 UNITS INJ SC SCH ×2 (09:42→21:00)
[2017-05-26] MEDS: morphine 2 MG INJ IV PRN (10:46)
[2017-05-26] MEDS: LEVOFLOXACIN 500MG/D5W (PMX) 100 ML IVPB SCH (12:04)
--- NOTE | 2017-05-26 15:45 | RADRPT ---
PROCEDURE: XR Chest. CLINICAL INDICATION: Pneumothorax follow up TECHNIQUE: Anterior chest x-ray. COMPARISON: 05/25/2017 FINDINGS: Right-sided Port-A-Cath catheter demonstrates stable and satisfactory position. Trace right pneumothorax is smaller than on previous exam. Small right pleural effusion is increased from previous exam. Small left pleural effusion is unchanged from previous exam. Numerous bilateral pulmonary nodules measure up to 2 cm and are unchanged from previous exam. The cardiomediastinal silhouette is unremarkable. The soft tissues are normal. Osseous structures are unremarkable. IMPRESSION: 1. Trace right pneumothorax is smaller than on previous exam. This is partly due to reaccumulation of right pleural effusion and may indicate trapped lung. 2. Multiple bilateral pulmonary nodules measure up to 2 cm, unchanged. 3. Small left pleural effusion, unchanged. RPTAT: QQ .Rene Aparicio MD, MD Date Time Electronically viewed and signed by .Rene Aparicio MD, MD on 05/26/2017 15:44 .M/
--- NOTE | 2017-05-26 15:52 | PN ---
Date/Time of Note Date/Time of Note DATE: 05/26/17 TIME: 15:46 Assessment/Plan VTE Prophylaxis VTE Prophylaxis Intervention: SCD's Lines/Catheters IV Catheter Type (from Nrsg): Peripheral IV Urinary Cath still in place: No Assessment/Plan Assessment/Plan 57 yo M with stage 4 esophageal ca here for AMS, likely metabolic encephalopathy from hypercalcemia of malignancy also with R sided pleural effusion and possible CAP. Encephalopathy improving with correction of hypercalcemia PLAN #hypercalcemia RESOLVED: stop IVFs sp calcitonin x 1, ZA x 1, Ca already improving #R sided pleural effusion, possible CAP. sp thora c/b small PTX. Exudative--> malignant v (less likely) infectious -cytology and micro in process -cont levoflox -f/u CXR ordered #end stage cancer PRN pain and agitation meds wound care cs for subQ mets sw helping with hospice arrangements #hypothyroid: TSH 40s and ft4 UD here. -IV levothyroxine started. consider touching base with endo prior to discharge DVT prophx. Imaging here without evidence of DVT likely dc in AM once hospice arrangements are made and if electrolytes are improved Exam/Review of Systems Vital Signs Vitals Vital Signs Date Time Temp Pulse Resp B/P Pulse Ox O2 Delivery O2 Flow Rate FiO2 05/26/17 13:32 98.5 108 20 129/62 93 05/25/17 04:32 Room Air 05/25/17 00:47 5 Intake and Output 05/25/17 05/25/17 05/26/17 15:00 23:00 07:00 Intake Total 700 ml 1985 ml Output Total 2300 ml 1000 ml Balance -1600 ml 985 ml Results Result Diagram: 05/26/17 0542 05/26/17 0542 Results 24 hrs Laboratory Tests Test 05/25/17 18:00 05/25/17 20:12 05/26/17 01:09 05/26/17 05:42 Body Fluid Type THORACENTESIS FLUID Body Fluid Volume 950.0 Body Fluid Color YELLOW Body Fluid Appearance HAZY Body Fluid WBC 110 Body Fluid RBC (Auto) 0 Body Fluid Polynuclear WBCs (%) 6.4 Body Fluid Mononuclear Cells % Auto 93.6 Body Fluid Glucose 88 Body Fluid Total Protein 4.4 Body Fluid Lactate Dehydrogenase 1556 Body Fluid Comment Calcium Level 11.2 H 10.2 10.2 White Blood Count 10.5 Red Blood Count 3.78 L Hemoglobin 10.9 L Hematocrit 33.1 L Mean Corpuscular Volume 87.6 Mean Corpuscular Hemoglobin 28.8 L Mean Corpuscular Hemoglobin Concent 32.9 Red Cell Distribution Width 19.7 H Platelet Count 411 Mean Platelet Volume 9.5 Neutrophils % 91.7 H Lymphocytes % 1.4 L Monocytes % 6.2 Eosinophils % 0.0 Basophils % 0.1 Nucleated Red Blood Cells % 0.0 Neutrophils # 9.6 H Lymphocytes # 0.2 L Monocytes # 0.7 Eosinophils # 0.0 Basophils # 0.0 Nucleated Red Blood Cells # 0.0 Sodium Level 134 L Potassium Level 2.9 *L Chloride Level 101 Carbon Dioxide Level 27 Anion Gap 9 Blood Urea Nitrogen 8 Creatinine 0.80 Glucose Level 92 Random Cortisol 33.8 Test 05/26/17 12:32 Calcium Level 9.5 Medications Medications Current Medications Calcitonin [place] (Miacalcin Inj) 240 units Q12 SC Last administered on 09:42; Admin Dose 240 UNITS; Start 05/25/17 at 04:00; Stop 05/27/17 at 03: 59 Ondansetron HCl (Zofran Inj) 4 mg Q6H PRN IV NAUSEA AND/OR VOMITING; Start 05/25/17 at 04:00 Acetaminophen (Tylenol Tab) 650 mg Q6H PRN PO PAIN LEVEL 1-3 OR FEVER; Start 05/25/17 at 04:00 Amlodipine Besylate (Norvasc) 10 mg DAILY PO ; Start 05/25/17 at 09:00 Morphine Sulfate (morphine) 2 mg Q4H PRN IV pain Last administered on 10:46; Admin Dose 2 MG; Start 05/25/17 at 10:30 Lorazepam 1 mg 1 mg Q6H PRN IV agitation Last administered on 05/25/17 12:18; Admin Dose 1 MG; Start 05/25/17 at 10:30 Levofloxacin/ Dextrose (Levaquin 500mg/ D5W 100 ml (Pmx)) 100 ml @ 100 mls/hr Q24H IVPB Last administered on 05/26/17 12:04; Admin Dose 100 MLS/HR; Start 05/26/17 at 12:00 Miscellaneous Information (Pending [facility] Order For Wound Care) This patient montilla... PRN PRN XX WOUND CARE; Start 05/25/17 at 15:30 Levothyroxine Sodium (Synthroid Iv) 100 mcg DAILY@06 IV Last administered on t 06:19; Admin Dose 100 MCG; Start 05/26/17 at 06:00 ROBERTO WATKINS MD May 26, 2017 15:52
[2017-05-26] MEDS ORDERED: LEVOFLOXACIN 500MG/D5W (PMX) 100 ML IVPB SCH (20:00)
[2017-05-27] VITALS (11 sets, daily range): BP systolic 113–128; BP diastolic 64–88; PULSE 95–105; RESP 16–20
[2017-05-27] MEDS: LEVOTHYROXINE 100 MCG VIAL IV SCH (05:57)
[2017-05-27 07:09] LABS: CALCIUM 9.3 mg/dl (8.4-10.2); CREATININE 0.7 mg/dl (0.61-1.24); POTASSIUM 3.9 mmol/L (3.5-5.1)
--- NOTE | 2017-05-27 11:20 | RADRPT ---
PROCEDURE: XR Chest. CLINICAL INDICATION: Shortness of breath. TECHNIQUE: Single frontal view. COMPARISON: 05/26/2017. FINDINGS: The right internal jugular vein central venous catheter remains in satisfactory position. Multiple b ilateral pulmonary nodules are unchanged. There is mild atelectasis at the lung bases, unchanged. Th e lungs are otherwise clear. The heart size is normal. There are small bilateral pleural effusions. There is a small right pneumothorax measuring approximately 10%, unchanged. There is no left pneumot horax. IMPRESSION: 1. Unchanged small right pneumothorax. 2. No other change from 05/26/2017. RPTAT: QQ .Russell Calderon MD, MD Date Time Electronically viewed and signed by .Russell Calderon MD, MD on 05/27/2017 11:20 .R/
--- NOTE | 2017-05-27 12:33 | PN ---
Date/Time of Note Date/Time of Note DATE: 05/27/17 TIME: 12:28 Assessment/Plan VTE Prophylaxis VTE Prophylaxis Intervention: SCD's Lines/Catheters IV Catheter Type (from Nrs): Saline Lock Urinary Cath still in place: No Assessment/Plan Chief Complaint/Hosp Course Assessment/Plan: 57 yo M with stage 4 esophageal ca here for AMS, likely metabolic encephalopathy from hypercalcemia of malignancy also with R sided pleural effusion and possible CAP. Encephalopathy improving with correction of hypercalcemia. PLAN #hypercalcemia RESOLVED: Have stopped IVFs sp calcitonin x 1, ZA x 1, Ca already improving -monitor #R sided pleural effusion, possible CAP. sp thora c/b small PTX. Exudative--> malignant v (less likely) infectious -cytology and micro in process -cont levoflox -f/u CXR ordered QAM #end stage cancer PRN pain and agitation meds wound care cs for subQ mets sw helping with hospice arrangements #hypothyroid: TSH 40s and ft4 UD here. -IV levothyroxine started, continue for now while here in the hospital, consider touching base with endo prior to discharge DVT prophx. Imaging here without evidence of DVT likely dc in AM once hospice arrangements are made and if electrolytes are improved. We will first get swallow eval which is pending Problems: Subjective 24 Hr Interval Summary Free Text/Dictation Patient still on IV levothyroxine. Asking for condom catheter to be removed. Exam/Review of Systems Vital Signs Vitals Vital Signs Date Time Temp Pulse Resp B/P Pulse Ox O2 Delivery O2 Flow Rate FiO2 05/27/17 12:11 103 05/27/17 11:10 98.2 18 117/80 96 05/25/17 04:32 Room Air 05/25/17 00:47 5 Intake and Output 05/26/17 05/26/17 05/27/17 15:00 23:00 07:00 Output Total 850 ml 750 ml 1400 ml Balance -850 ml -750 ml -1400 ml Exam General: able to answer questions appropriately though he is lethargic HEENT: Atraumatic, normocephalic. The pupils are equal, round and reactive. Extraocular motor are intact Neck: Supple with full range of motion. Upper airway gurgling sounds Chest: Nontender Lungs: Coarse breath sounds of the bilateral lung melendez greater on the right and the left, Heart: Normal S1-S2, Regular rhythm and rate. Abdomen: Soft , nontender, nondistended , bowel sounds are present. No guarding no rebound tenderness , No masses or organomegaly. No costovertebral temporal angle mass Extremities: Normal to inspection, no edema no cyanosis Neurologic: able to answer some questions appropriately, though he is a bit confused. Unable to assess further neurologic exam secondary to somnolence and lethargy. Results Result Diagram: 05/26/17 0542 05/27/1742 Results 24 hrs Laboratory Tests Test 05/26/17 12:32 05/26/17 17:48 05/27/17 05:42 Calcium Level 9.5 9.1 9.3 Magnesium Level 1.7 1.6 L Sodium Level 132 L Potassium Level 3.9 Chloride Level 100 Carbon Dioxide Level 25 Anion Gap 11 Blood Urea Nitrogen 7 Creatinine 0.70 Glucose Level 82 Medications Medications Current Medications Ondansetron HCl (Zofran Inj) 4 mg Q6H PRN IV NAUSEA AND/OR VOMITING; Start 05/25/17 at 04:00 Acetaminophen (Tylenol Tab) 650 mg Q6H PRN PO PAIN LEVEL 1-3 OR FEVER; Start 05/25/17 at 04:00 Amlodipine Besylate (Norvasc) 10 mg DAILY PO ; Start 05/25/17 at 09:00 Morphine Sulfate (morphine) 2 mg Q4H PRN IV pain Last administered on 10:46; Admin Dose 2 MG; Start 05/25/17 at 10:30 Lorazepam 1 mg 1 mg Q6H PRN IV agitation Last administered on 05/25/17 12:18; Admin Dose 1 MG; Start 05/25/17 at 10:30 Levofloxacin/ Dextrose (Levaquin 500mg/ D5W 100 ml (Pmx)) 100 ml @ 100 mls/hr Q24H IVPB Last administered on 05/26/17 12:04; Admin Dose 100 MLS/HR; Start 05/26/17 at 12:00 Miscellaneous Information (Pending [facility] Order For Wound Care) This patient montilla... PRN PRN XX WOUND CARE; Start 05/25/17 at 15:30 Levothyroxine Sodium (Synthroid Iv) 100 mcg DAILY@06 IV Last administered on 05:57; Admin Dose 100 MCG; Start 05/26/17 at 06:00 Multivitamins Therapeutic (Theragran) 1 tab DAILY PO ; Start 05/27/17 at 12:30 Ascorbic Acid (Vitamin C) 500 mg BID PO ; Start 05/27/17 at 12:30 Zinc Sulfate (Zinc Sulfate) 220 mg DAILY PO ; Start 05/27/17 at 12:30 LUAN LIEBERMAN May 27, 2017 12:33
[2017-05-27] MEDS: LEVOFLOXACIN 500MG/D5W (PMX) 100 ML IVPB SCH (15:32)
[2017-05-27] MEDS: ZINC SULFATE 220 MG CAP PO SCH (15:32)
[2017-05-27] MEDS: MULTIVITAMINS THERAPEUTIC TAB PO SCH (15:33)
[2017-05-27] MEDS: AMLODIPINE 10 MG TAB PO SCH (15:33)
[2017-05-27] MEDS: ASCORBIC ACID 500 MG TAB PO SCH ×2 (15:33→20:57)
[2017-05-27] MEDS ORDERED: MAGNESIUM HYDROXIDE 30ML CUP PO PRN (17:00)
[2017-05-27 20:27] LABS: PTH CALCIUM 14.4 mg/dL (8.6-10.3)
[2017-05-27] MEDS: DOCUSATE SODIUM 10 MG/ML (10ML CUP) PO SCH (20:56)
[2017-05-28] VITALS (13 sets, daily range): BP systolic 102–127; BP diastolic 64–83; PULSE 84–110; RESP 16–18
[2017-05-28] MEDS: LEVOTHYROXINE 100 MCG VIAL IV SCH (05:28)
[2017-05-28 07:26] LABS: ABNORMAL IP MESSAGE 1; BASOPHILS % 0.1 % (0.0-2.0); EOSINOPHILS % 0.2 % (0.0-7.0); HEMATOCRIT 33.5 % (42.0-52.0); HEMOGLOBIN 11.3 g/dl (14.0-18.0); LYMPHOCYTES # 0.2 10^3/ul (0.8-2.9); LYMPHOCYTES % 1.5 % (15.0-51.0); MEAN CORPUSCULAR HEMOGLOBIN 29.7 pg (29.0-33.0); MEAN CORPUSCULAR HGB CONC 33.7 g/dl (32.0-37.0); MEAN CORPUSCULAR VOLUME 87.9 fl (82.0-101.0); MEAN PLATELET VOLUME 8.7 fl (7.4-10.4); MONOCYTE # 0.7 10^3/ul (0.3-0.9); MONOCYTES % 7.1 % (0.0-11.0); NEUTROPHILS % 90.3 % (39.0-77.0); PLATELET COUNT 395 10^3/UL (140-415); POSITIVE DIFF @See below; RED BLOOD COUNT 3.81 10^6/ul (4.70-6.10); RED CELL DISTRIBUTION WIDTH 19.9 % (11.5-14.5)
[2017-05-28 07:53] LABS: CALCIUM 9.3 mg/dl (8.4-10.2); CREATININE 0.67 mg/dl (0.61-1.24)
[2017-05-28 07:57] LABS: POTASSIUM 2.8 mmol/L (3.5-5.1)
[2017-05-28] MEDS: DOCUSATE SODIUM 10 MG/ML (10ML CUP) PO SCH ×2 (09:00→21:37)
[2017-05-28] MEDS: ASCORBIC ACID 500 MG TAB PO SCH ×3 (09:00→21:37)
[2017-05-28] MEDS: AMLODIPINE 10 MG TAB PO SCH (09:00)
[2017-05-28] MEDS: ZINC SULFATE 220 MG CAP PO SCH ×2 (09:00→15:20)
[2017-05-28] MEDS: MULTIVITAMINS THERAPEUTIC TAB PO SCH ×2 (09:00→15:20)
--- NOTE | 2017-05-28 11:50 | PN ---
Date/Time of Note Date/Time of Note DATE: 05/28/17 TIME: 11:47 Assessment/Plan VTE Prophylaxis VTE Prophylaxis Intervention: SCD's Lines/Catheters IV Catheter Type (from Nrs): Saline Lock Urinary Cath still in place: No Assessment/Plan Chief Complaint/Hosp Course Assessment/Plan: 57 yo M with stage 4 esophageal ca here for AMS, likely metabolic encephalopathy from hypercalcemia of malignancy also with R sided pleural effusion and possible CAP. Encephalopathy improving with correction of hypercalcemia. PLAN #hypercalcemia RESOLVED: Have stopped IVFs sp calcitonin x 1, ZA x 1, Ca already improving -monitor #R sided pleural effusion, possible CAP. sp thora c/b small PTX. Exudative--> malignant v (less likely) infectious -cytology and micro in process -cont levoflox -f/u CXR ordered for today #end stage cancer PRN pain and agitation meds wound care cs for subQ mets sw helping with hospice arrangements #hypothyroid: TSH 40s and ft4 UD here. -IV levothyroxine started, continue for now while here in the hospital, consider touching base with endo prior to discharge DVT prophx. Imaging here without evidence of DVT likely dc in 24 hours, now home and set up hospice per family request, will order for hospital bed, order for home health nursing as well. Problems: Subjective 24 Hr Interval Summary Free Text/Dictation Patient with slightly more energy today. Seen by speech therapy team yesterday. Exam/Review of Systems Vital Signs Vitals Vital Signs Date Time Temp Pulse Resp B/P Pulse Ox O2 Delivery O2 Flow Rate FiO2 05/28/17 10:34 92 05/28/17 07:31 98.1 18 119/81 95 05/25/17 04:32 Room Air 05/25/17 00:47 5 Intake and Output 05/27/17 05/27/17 05/28/17 15:00 23:00 07:00 Intake Total 100 ml 0 ml Output Total 550 ml 450 ml Balance -450 ml -450 ml Exam General: able to answer questions appropriately though he is lethargic HEENT: Atraumatic, normocephalic. The pupils are equal, round and reactive. Extraocular motor are intact Neck: Supple with full range of motion. Upper airway gurgling sounds Chest: Nontender Lungs: Less coarse breath sounds of the bilateral lung melendez greater on the right and the left, Heart: Normal S1-S2, Regular rhythm and rate. Abdomen: Soft , nontender, nondistended , bowel sounds are present. Extremities: Normal to inspection, no edema no cyanosis Neurologic: able to answer some questions appropriately, no overt focal deficits noted Results Result Diagram: 05/28/17 0714 05/28/17 0713 Results 24 hrs Laboratory Tests Test 05/28/17 07:13 05/28/17 07:14 Sodium Level 132 L Potassium Level 2.8 *L Chloride Level 100 Carbon Dioxide Level 28 Anion Gap 7 L Blood Urea Nitrogen 6 L Creatinine 0.67 Glucose Level 80 Calcium Level 9.3 White Blood Count 10.0 Red Blood Count 3.81 L Hemoglobin 11.3 L Hematocrit 33.5 L Mean Corpuscular Volume 87.9 Mean Corpuscular Hemoglobin 29.7 Mean Corpuscular Hemoglobin Concent 33.7 Red Cell Distribution Width 19.9 H Platelet Count 395 Mean Platelet Volume 8.7 Neutrophils % 90.3 H Lymphocytes % 1.5 L Monocytes % 7.1 Eosinophils % 0.2 Basophils % 0.1 Nucleated Red Blood Cells % 0.0 Neutrophils # 9.0 H Lymphocytes # 0.2 L Monocytes # 0.7 Eosinophils # 0.0 Basophils # 0.0 Nucleated Red Blood Cells # 0.0 Medications Medications Current Medications Ondansetron HCl (Zofran Inj) 4 mg Q6H PRN IV NAUSEA AND/OR VOMITING; Start 05/25/17 at 04:00 Acetaminophen (Tylenol Tab) 650 mg Q6H PRN PO PAIN LEVEL 1-3 OR FEVER; Start 05/25/17 at 04:00 Amlodipine Besylate (Norvasc) 10 mg DAILY PO Last administered on 05/27/17 15: 33; Admin Dose 10 MG; Start 05/25/17 at 09:00 Morphine Sulfate (morphine) 2 mg Q4H PRN IV pain Last administered on 10:46; Admin Dose 2 MG; Start 05/25/17 at 10:30 Lorazepam 1 mg 1 mg Q6H PRN IV agitation Last administered on 05/25/17 12:18; Admin Dose 1 MG; Start 05/25/17 at 10:30 Levofloxacin/ Dextrose (Levaquin 500mg/ D5W 100 ml (Pmx)) 100 ml @ 100 mls/hr Q24H IVPB Last administered on 05/27/17 15:32; Admin Dose 100 MLS/HR; Start 05/26/17 at 12:00 Miscellaneous Information (Pending [facility] Order For Wound Care) This patient montilla... PRN PRN XX WOUND CARE; Start 05/25/17 at 15:30 Levothyroxine Sodium (Synthroid Iv) 100 mcg DAILY@06 IV Last administered on 05:28; Admin Dose 100 MCG; Start 05/26/17 at 06:00 Multivitamins Therapeutic (Theragran) 1 tab DAILY PO Last administered on 15:33; Admin Dose 1 TAB; Start 05/27/17 at 12:30 Ascorbic Acid (Vitamin C) 500 mg BID PO Last administered on 05/27/17 15:33; Admin Dose 500 MG; Start 05/27/17 at 12:30 Zinc Sulfate (Zinc Sulfate) 220 mg DAILY PO Last administered on 05/27/17 15: 32; Admin Dose 220 MG; Start 05/27/17 at 12:30 Docusate Sodium (Colace Liquid Cup) 100 mg BID PO ; Start 05/27/17 at 21:00 Magnesium Hydroxide 30 ml 30 ml DAILY PRN PO CONSTIPATION; Start 05/27/17 at 17 :00 Magnesium Sulfate (Magnesium Sulfate 2 Gm/50 ml) 50 ml @ 25 mls/hr ONCE ONCE IVPB ; Start 05/28/17 at 12:00; Stop 05/28/17 at 13:59; Status LUAN MCINTYRE May 28, 2017 11:49
[2017-05-28] MEDS ORDERED: MAGNESIUM SULFATE 2 GM/50 ML 50 ML IVPB ONE (12:00)
[2017-05-28 12:13] LABS: CREATININE 0.64 mg/dl (0.61-1.24)
[2017-05-28 12:19] LABS: POTASSIUM 2.8 mmol/L (3.5-5.1)
[2017-05-28] MEDS: LEVOFLOXACIN 500MG/D5W (PMX) 100 ML IVPB SCH (12:30)
[2017-05-28] MEDS: POTASSIUM CHLORIDE 250 ML IVPB SCH ×2 (14:35→18:50)
--- NOTE | 2017-05-28 15:47 | RADRPT ---
PROCEDURE: XR Chest. CLINICAL INDICATION: Rule out progression of pneumothorax TECHNIQUE: AP view of the chest were obtained. COMPARISON: Prior day FINDINGS: Small stable right-sided pneumothorax. The heart size is normal. There is a right-sided sarah-cathet er. There is bibasilar atelectasis and small bilateral effusions. There are multiple rounded bilater al masses most consistent with metastatic disease. IMPRESSION: Stable right-sided pneumothorax which is small. Stable right-sided port. Multiple rounded bilateral masses. Small bilateral effusions and bibasilar atelectasis. RPTAT: GG .Estevan Schwarz MD, MD Date Time Electronically viewed and signed by .Estevan Schwarz MD, on 05/28/2017 15:47 .G/
[2017-05-28] MEDS: morphine 2 MG INJ IV PRN (18:55)
[2017-05-29] VITALS (10 sets, daily range): BP systolic 102–113; BP diastolic 66–76; PULSE 90–101; RESP 15–18
[2017-05-29] MEDS: FLUTICASONE 0.05% 16 GM NAS SPRAY NASAL SCH ×2 (01:23→08:50)
[2017-05-29] MEDS: LEVOTHYROXINE 100 MCG VIAL IV SCH (06:13)
[2017-05-29 07:22] LABS: ABNORMAL IP MESSAGE 1; BASOPHILS % 0.1 % (0.0-2.0); EOSINOPHILS % 0.5 % (0.0-7.0); HEMATOCRIT 30.8 % (42.0-52.0); HEMOGLOBIN 10.3 g/dl (14.0-18.0); LYMPHOCYTES # 0.2 10^3/ul (0.8-2.9); LYMPHOCYTES % 1.7 % (15.0-51.0); MEAN CORPUSCULAR HEMOGLOBIN 29.8 pg (29.0-33.0); MEAN CORPUSCULAR HGB CONC 33.4 g/dl (32.0-37.0); MEAN PLATELET VOLUME 10.2 fl (7.4-10.4); MONOCYTE # 0.8 10^3/ul (0.3-0.9); NEUTROPHIL # 7.6 10^3/ul (1.6-7.5); NEUTROPHILS % 88.2 % (39.0-77.0); PLATELET COUNT 347 10^3/UL (140-415); POSITIVE DIFF @See below; RED BLOOD COUNT 3.46 10^6/ul (4.70-6.10); RED CELL DISTRIBUTION WIDTH 20.2 % (11.5-14.5); WHITE BLOOD COUNT 8.7 10^3/ul (4.8-10.8)
[2017-05-29 07:47] LABS: CALCIUM 8.7 mg/dl (8.4-10.2); CREATININE 0.66 mg/dl (0.61-1.24); POTASSIUM 3.3 mmol/L (3.5-5.1)
[2017-05-29] MEDS: AMLODIPINE 10 MG TAB PO SCH (08:13)
[2017-05-29] MEDS: MULTIVITAMINS THERAPEUTIC TAB PO SCH (08:50)
[2017-05-29] MEDS: ZINC SULFATE 220 MG CAP PO SCH (08:50)
[2017-05-29] MEDS: DOCUSATE SODIUM 10 MG/ML (10ML CUP) PO SCH (08:50)
[2017-05-29] MEDS: ASCORBIC ACID 500 MG TAB PO SCH (08:50)
[2017-05-29] MEDS: LEVOFLOXACIN 500MG/D5W (PMX) 100 ML IVPB SCH (13:05)
[2017-05-29] MEDS ORDERED: POTASSIUM CHLORIDE (SR) 20 MEQ TAB PO STA (13:27)
[2017-05-29] MEDS ORDERED: POTASSIUM CHLORIDE 20 MEQ POWDER FOR ORAL SOLN PO SCH (13:41)
--- NOTE | 2017-05-29 13:41 | PDOCDIS ---
Discharge Instructions CONDITION Patient Condition: Stable HOME CARE INSTRUCTIONS: Special Diet: puree diet ACTIVITY: Activity Restrictions: Slowly Increase Activity FOLLOW UP/APPOINTMENTS Follow-up Plan Please take your medications as prescribed, please follow-up with your regular doctor in the clinic in the next 1 week. LUAN LIEBERMAN May 29, 2017 13:41
[2017-05-29] MEDS ORDERED: FLUT16SP17 NASAL (13:43)
[2017-05-29] MEDS ORDERED: ASC500 PO (13:43)
[2017-05-29] MEDS ORDERED: UDMOM PO (13:43)
[2017-05-29] MEDS ORDERED: ZINC220C11 PO (13:43)
[2017-05-29] MEDS ORDERED: MULTI PO (13:43)
[2017-05-29] MEDS ORDERED: LEVO100T82 PO (13:45)
--- NOTE | 2017-05-29 16:49 | RADRPT ---
PROCEDURE: Video-fluoroscopy swallowing study. CLINICAL INDICATION: Dysphagia. TECHNIQUE: Fluoroscopic guided video swallowing study was done in conjunction with the speech ther apist. The study was confined to the oral, pharyngeal, and cervical phases of the swallowing mechani sm. 2.5 minutes of fluoroscopy time was used. 16 series of images were obtained. COMPARISON: No prior study is available for comparison. FINDINGS: There is aspiration during swallowing nectar-thick liquid via straw. IMPRESSION: 1. Aspiration during swallowing. 2. Please refer to the speech therapist's recommendations for future feedings. RPTAT: QQ .Russell Calderon MD, MD Date Time Electronically viewed and signed by .Russell Calderon MD, on 05/29/2017 16:49 .R/
--- NOTE | 2017-05-29 17:23 | DS ---
DATE OF ADMISSION: 05/25/2017 DATE OF DISCHARGE: 05/29/2017 HOSPITAL COURSE: This is a 57-year-old male originally admitted on 05/25/2017 and being discharged home on 05/29/2017. The patient came in with sepsis and lactic acidosis. He also had a fever, again part of the sepsis and questionable septic shock. He was admitted and put on broad-spectrum antibiotics. He also had a right-sided pleural effusion and underwent thoracentesis. He developed a small pneumothorax afterwards, but repeat serial chest x-ray showed resolving pneumothorax. The patient did not require any extra supplemental oxygen afterwards. He also had some altered mental status secondary to the sepsis cells, also secondary to hypercalcemia. He was given IV fluids for that. His calcium level has improved. There was a thought of possible community-acquired pneumonia as the source so he was placed on antibiotics for that. As mentioned, he was also found with very elevated TSH levels and very low T4 levels as well and was started on IV levothyroxine and his symptoms of weakness and coldness also improved. His sepsis resolved as well. Patient does have a history of stage 4 esophageal cancer and his hypercalcemia was likely thought to be secondary to his malignancy. He met with the hospice team as well as this was considered by the family to have the patient on hospice care, but they decided against that want to undergo palliative services at home, so equipment has been ordered including a home bed. Patient's mental status has improved, his sepsis is resolving, his calcium levels are normal. He is going to work with physical therapy today and based on their recommendations, will be discharged home today in improved condition with either further equipment or with equipment mentioned above. He will be sent with vitamin C 500 mg b.i.d., Flonase 50 mcg spray nasal b.i.d., levothyroxine 100 mcg every morning, milk of magnesia daily p.r.n., multivitamin 1 tab daily, zinc sulfate 220 mg daily, amlodipine 10 mg daily. He will need to follow up with regular doctor in clinic in the next 1 to 2 weeks. FINAL DIAGNOSES: 1. Sepsis secondary to community-acquired pneumonia, now resolved. 2. Small pneumothorax, status post thoracentesis, right-sided pleural effusion, now resolving. 3. History of stage 4 esophageal cancer. 4. Hypercalcemia secondary to malignancy, resolved. 5. Severe hypothyroidism, now on levothyroxine. Time spent to discharge the patient was 40 minutes. Dictated By: Wilber Freeman MD /chapis/lorena /Document#: [id number]
== END 2017-05-29 19:16 | disposition home health service (06) | DRG 871 ==
LOC: E/R 23:55 → TEL 05-25 03:27
PROVIDERS: ADMIT Family Medicine; ATTEND Family Medicine
PROC: 0W993ZZ Drainage of Right Pleural Cavity, Percutaneous Approach (ICD-10-PCS; principal; 2017-05-25)
DX: A41.9 Sepsis, unspecified organism (principal); R65.21 Severe sepsis with septic shock; J18.9 Pneumonia, unspecified organism; E87.2 Acidosis; J90 Pleural effusion, not elsewhere classified; C15.9 Malignant neoplasm of esophagus, unspecified; N17.9 Acute kidney failure, unspecified; C79.9 Secondary malignant neoplasm of unspecified site; E83.52 Hypercalcemia; J93.9 Pneumothorax, unspecified; D63.0 Anemia in neoplastic disease; Z66 Do not resuscitate; Z87.891 Personal history of nicotine dependence; E03.9 Hypothyroidism, unspecified
CPT/HCPCS: 36415; 70450; 71010; 74230; 76942; 80048; 80053; 81001; 81003; 82310; 82533; 82945; 83605; 83615; 83735; 83970; 84157; 84439; 84443; 84484; 85025; 85610; 85730; 87040; 87070; 87086; 87102; 87116; 88104; 88305; 89051; 92526; 92610; 92611; 93005; 93970; 96372; 96374; 96375; 97162; J3487; C9113; J1630; J1956; J2060; J2270; J2543; J3370; J3475; J3480; J7030